=== PATIENT | female | born 1945 | race American Indian/Alaskan Native ===

== ENCOUNTER 2018-06-27 07:14 | Day surgery (SDC) | payer MEDICAID ==
[~2018-06-27] VITALS: Ht 157.5 cm; Wt 68.9 kg
[2018-06-27] MEDS ORDERED: PHENYLEPHRINE HCL 10% OPHTH DROPS 5ML LEFTEYE ONE (08:00)
[2018-06-27] MEDS ORDERED: TROPICAMIDE 1% OPHTH DROPS 15ML LEFTEYE ONE (08:00)
[2018-06-27] MEDS ORDERED: CYCLOPENTOLATE HCL 1% OPHTH DROPS 2ML LEFTEYE ONE (08:00)
[2018-06-27] MEDS ORDERED: NEO/POLYMYX B SULF/DEXAMETH OPHTH OINT 3.5GM ONE (08:00)
[2018-06-27] MEDS ORDERED: LIDOCAINE HCL/PF 2% 20 MG/ML 10ML VIAL ONE (08:00)
[2018-06-27] MEDS ORDERED: PREDNISOLONE ACETATE 1% OPHTH DROPS 1ML ONE (08:00)
[2018-06-27] MEDS ORDERED: BALANCED SALT IRRIG SOLN COMB1 500ML OP ONE (08:00)
[2018-06-27] MEDS ORDERED: PHENYLEPHRINE HCL 2.5% OPHTH DROPS 2ML ONE (08:00)
[2018-06-27] MEDS ORDERED: BALANCED SALT IRRIG SOLN 15ML ONE (08:00)
[2018-06-27] MEDS ORDERED: SODIUM CHLORIDE 0.9% 1,000 ML IV SCH (08:45)
[2018-06-27] MEDS ORDERED: ATOR10TA69 PO (09:24)
[2018-06-27] MEDS ORDERED: HYDR25TA PO (09:24)
[2018-06-27] MEDS ORDERED: METF-415 PO (09:24)
[2018-06-27] MEDS ORDERED: GLIP5TAB12 PO (09:24)
[2018-06-27] MEDS ORDERED: HYALURONATE SODIUM 14 MG/ML 0.85ML SYRINGE IO ONE (09:28)
[2018-06-27] MEDS ORDERED: MIDAZOLAM HCL 2 MG/2 ML VIAL ONE (09:34)
[2018-06-27] MEDS ORDERED: TRYPAN BLUE 0.5 ML DISP.SYRIN IO ONE (09:50)
== END 2018-06-27 11:30 | disposition home or self-care (01) ==
LOC: OR 07:14
PROVIDERS: ATTEND Ophthalmology
DX: H25.89 Other age-related cataract (principal); I10 Essential (primary) hypertension; E66.01 Morbid (severe) obesity due to excess calories
CPT/HCPCS: 66984; 82962; J2250; J3490; Q9957; V2632

== ENCOUNTER → 2023-10-04 | Day surgery (SDC) | payer MEDICAID ==
[~2023-10-04] VITALS: Ht 162.6 cm; Wt 77.1 kg
[~2023-10-04] MED LIST: ALEN70TA79 PO; ATOR20TA65 PO; BALANCED SALT IRRIG SOLN 15ML ONE; BALANCED SALT IRRIG SOLN COMB1 500ML OP NR; BENA5TAB40 PO; CHOL100046 PO; CYCLOPENTOLATE HCL 1% OPHTH DROPS 2ML RIGHTEYE ONE; DEXAMETHASONE 4MG/ML 1ML VIAL ONE; FENTANYL CITRATE/PF 50MCG/ML 2ML VIAL IV PRN; FENTANYL CITRATE/PF 50MCG/ML 2ML VIAL ONE; FLUT1BLS8 IH; GLIP10TA10 PO; HYALURONATE SODIUM 10MG/ML 0.55ML SYRINGE IO ONE; HYDR25TA PO; METF-414 PO; MIDAZOLAM HCL 2 MG/2 ML VIAL ONE; ONDANSETRON HCL 4MG/2ML INJ IV PRN; ONDANSETRON HCL 4MG/2ML INJ ONE; PHENYLEPHRINE HCL 10% OPHTH DROPS 5ML RIGHTEYE NR; TROPICAMIDE 1% OPHTH DROPS 15ML RIGHTEYE NR; TRYPAN BLUE 0.5 ML DISP.SYRIN IO ONE
[2023-10-04] MEDS: SODIUM CHLORIDE 0.9% 1,000 ML IV SCH (08:36)
== END | disposition home or self-care (01) ==
LOC: OR 07:03
PROVIDERS: ATTEND Ophthalmology
DX: E11.36 Type 2 diabetes mellitus with diabetic cataract (principal); H25.89 Other age-related cataract; E78.5 Hyperlipidemia, unspecified; I10 Essential (primary) hypertension; J45.909 Unspecified asthma, uncomplicated; M81.0 Age-related osteoporosis without current pathological fracture; Z79.84 Long term (current) use of oral hypoglycemic drugs; Z79.899 Other long term (current) drug therapy; Z98.890 Other specified postprocedural states
CPT/HCPCS: 66984; 82962; J3010; J1100; J3490 ×2; J2250; J2405; V2632; Q9957